=== PATIENT | female | born 1975 | race Caucasian/White ===

== ENCOUNTER 2017-09-10 19:57 | Inpatient (IN) ==
[2017-09-10] MEDS ORDERED: *HR* FentaNYL (PF) 100 MCG/2 ML VIAL IVP ONE ×3 (20:13→21:15)
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
[2017-09-10] MEDS ORDERED: Ondansetron 4 MG/2 ML VIAL IVP ONE (21:15)
[2017-09-10 21:58] LABS: BUN/Creatinine Ratio 24 (6-26); Blood Urea Nitrogen 12 mg/dL (6-20); Calcium 9.1 mg/dL (8.6-10.3); Carbon Dioxide 19 mEq/L (23-29); Chloride 109 mEq/L (98-107); Glucose 92 mg/dL (70-105); Osmolality,Calculated 277 (280-300); Potassium 4.1 mEq/L (3.5-5.1); Sodium 134 mEq/L (136-145); eGFR For Non-African Americans > 60 (> 60)
[2017-09-10 22:00] LABS: INR 1.1; Prothrombin Time 11.5 Seconds (9.4-12.1)
[2017-09-10 22:04] LABS: Hematocrit 41.9 % (35.3-44.9); Hemoglobin 14.4 g/dL (11.5-15.4); Mean Corpuscular HGB Conc 34.4 g/dL (31.6-35.5); Mean Corpuscular Hemoglobin 32.1 pg (28.0-33.3); Mean Corpuscular Volume 93.5 fL (83.0-100.0); Mean Platelet Volume 11.6 fL (9.4-12.4); Platelet Count 206 K/mcL (140-400); Red Blood Count 4.48 M/mcL (3.82-4.97); Red Cell Distribution Width 13.6 % (11.5-14.5)
[2017-09-10] MEDS ORDERED: *HR* OxyCODONE/APAP 10/325 TABLET PO ONE (22:15)
[2017-09-10] MEDS ORDERED: Naloxone 0.4 MG/ML INJ IVP PRN (23:38)
[2017-09-10] MEDS ORDERED: 0.9 % Sodium Chloride 1,000 ML IVC SCH (23:45)
[2017-09-10] MEDS ORDERED: *HR* OxyCODONE/APAP 10/325 TABLET PO PRN (23:49)
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
[2017-09-11] MEDS: Nicotine 14 MG PATCH.TD24 TD SCH ×2 (00:22→08:26)
[2017-09-11] MEDS: *HR* OxyCODONE Immed Rel 5 MG TABLET PO PRN ×3 (00:23→09:47)
[2017-09-11 00:45] LABS: Basophils # 0.1 K/mcL (0.0-0.2); Basophils % 0.5 %; Eosinophils # 0.3 K/mcL (0.0-0.6); Eosinophils % 1.4 %; Hematocrit 39.8 % (35.3-44.9); Hemoglobin 13.7 g/dL (11.5-15.4); Immature Granulocytes % 0.3 % (0-4); Lymphocytes # 9.4 K/mcL (0.6-4.6); Lymphocytes % 46.1 %; Mean Corpuscular HGB Conc 34.4 g/dL (31.6-35.5); Mean Corpuscular Hemoglobin 32.5 pg (28.0-33.3); Mean Corpuscular Volume 94.5 fL (83.0-100.0); Mean Platelet Volume 11.2 fL (9.4-12.4); Monocytes # 1.7 K/mcL (0.0-1.3); Monocytes % 8.4 %; Neutrophils # 8.8 K/mcL (1.6-8.9); Platelet Count 197 K/mcL (140-400); Red Blood Count 4.21 M/mcL (3.82-4.97); Red Cell Distribution Width 13.6 % (11.5-14.5); Segmented Neutrophils % 43.3 %
[2017-09-11 00:55] LABS: INR 1.1; Prothrombin Time 11.3 Seconds (9.4-12.1)
[2017-09-11 00:58] LABS: Activated Partial Thrombo Time 27.3 Seconds (26.0-36.0)
[2017-09-11] MEDS ORDERED: levoFLOXacin 750 MG TABLET PO SCH (01:00)
[2017-09-11 01:07] LABS: Alanine Aminotransferase 160 Units/L (7-52); Albumin 3.6 g/dL (3.5-5.7); Albumin/Globulin Ratio 1.2 (1.1-2.2); Alkaline Phosphatase 70 Units/L (34-104); Aspartate Amino Transferase 97 Units/L (13-39); BUN/Creatinine Ratio 22 (6-26); Bilirubin,Total 0.7 mg/dL (0.3-1.0); Blood Urea Nitrogen 13 mg/dL (6-20); Calcium 8.9 mg/dL (8.6-10.3); Carbon Dioxide 25 mEq/L (23-29); Chloride 109 mEq/L (98-107); Chol/HDL Ratio 3.2 (0-4.9); Cholesterol 152 mg/dL (< 200); Globulin 3.1 g/dL (2.4-3.5); Glucose 110 mg/dL (70-105); HDL Cholesterol 48 mg/dL (40-59); LDL Cholesterol,Calculated 86 mg/dL (0-99); Magnesium 2.1 mg/dL (1.6-2.6); Osmolality,Calculated 287 (280-300); Phosphorous 3.8 mg/dL (2.7-4.5); Potassium 3.9 mEq/L (3.5-5.1); Sodium 138 mEq/L (136-145); Total Protein 6.7 g/dL (6.4-8.9); Triglycerides 90 mg/dL (< 150); eGFR For Non-African Americans > 60 (> 60)
[2017-09-11 01:12] LABS: Platelet Estimate Normal (Normal); Reactive Lymphocytes Present (Not Present)
[2017-09-11] MEDS: *HR* HYDROmorphone 2 MG TABLET PO PRN ×2 (02:17→08:26)
[2017-09-11] MEDS ORDERED: *HR* Heparin 5,000 UNIT/ML VIAL SQ SCH (06:00)
[2017-09-11] MEDS ORDERED: *HR* FentaNYL (PF) 100 MCG/2 ML VIAL IVP PRN ×4 (09:58→17:47)
--- NOTE | 2017-09-11 10:06 | Internal Med Progress Note ---
Date of Encounter: 09/11/17 Time of Encounter: 10:03 - Assessment and plan (1) Closed trimalleolar fracture of left ankle Current Visit: Yes Status: Acute Assessment and plan: Podiatry consulted; appreciate input. Scheduled for surgery today. Pain control an issue per patient. She may have decent opioid tolerance due to IV heroin abuse as recent as 2 months ago. I will discontinue PO dilaudid. Continue PO oxycodone. Add IV fentanyl 25 mcg IV Q4H PRN for breakthrough pain not relieved by oxycodone. I am going to be judicious with opioid use given her history of opioid abuse, but she does have significant fracture and is likely in pain. Will monitor pain control closely post-op. Would appreciate input from podiatry in regards to post-op pain control recommendations. Will resume diet post-op per podiatry's recommendations. Qualifiers: Encounter type: subsequent encounter Fracture healing: with nonunion Qualified Code(s): S82.852K - Displaced trimalleolar fracture of left lower leg , subsequent encounter for closed fracture with nonunion (2) Leucocytosis Current Visit: Yes Status: Acute Assessment and plan: WBC up to 20.4 today. She remains afebrile. She states that she has a history of asplenia with elevated WBC in the past. CXR was WNL. Will obtain UA reflex culture. Will continue IV levaquin for now. Will deescalate based on UA results. Qualifiers: Leukocytosis type: unspecified Qualified Code(s): D72.829 - Elevated white blood cell count, unspecified (3) DVT prophylaxis Current Visit: Yes Status: Acute Assessment and plan: Continue heparin SC. - Time Spent With Patient 25 - 35 minutes - Subjective Interval history: Patient had no acute events overnight. Nursing staff reports that patient was crying this morning requesting changes to her pain medications. I saw patient this first thing this AM. She states that her pain is not well-controlled. She states that oxycodone and dilaudid PO are "not touching me." She states that she stopped using IV heroin about 2 months ago. She thinks she may be too opioid tolerant. She is scheduled for surgery today by podiatry for her left ankle fracture. She has no other complaints. - Constitutional Vitals: Temp Pulse Resp BP Pulse Ox 98.2 F 95 18 132/82 98 09/11/17 07:39 09/11/17 07:39 09/11/17 07:39 09/11/17 07:39 09/11/17 07:39 General appearance: Present: A&O X 3, pleasant, answers questions appropriately Exam: Mild distress due to pain. - Respiratory Respiratory exam: Present: CTAB. Absent: accessory muscle use, rales, rhonchi, wheezes Additional comments: Normal WOB - Cardiovascular Cardiovascular exam: Present: RRR, +S1, +S2. Absent: diastolic murmur, gallop, rubs, systolic murmur Additional comments: No RLE edema. Unable to evaluate LLE due to bandaged per podiatry recommendations. - GI/Abdominal GI/Abdominal exam: Present: normal bowel sounds, soft. Absent: distended, hepatomegaly, mass, splenomegaly, tenderness - Extremities Exam Extremities exam: Present: warm. Absent: calf tenderness, cyanotic, pedal edema Additional comments: LLE bandaged as per podiatry recommendations. - Psychiatric Additional comments: Mild agitation due to pain. Depressed mood and affect. Crying a little during interview due to pain. - Skin Skin exam: Present: dry, intact, warm. Absent: cyanosis, rash Internal Medicine: Result - Labs CBC & Chem 7: 09/11/17 00:36 09/11/17 00:36 Labs: Short CBC 09/11/17 Range/Units 00:36 WBC 20.4 H (4.3-11.1) K/mcL Hgb 13.7 (11.5-15.4) g/dL Hct 39.8 (35.3-44.9) % Plt Count 197 (140-400) K/mcL Neutrophils # 8.8 (1.6-8.9) K/mcL BMP 09/11/17 00:36 Sodium 138 Potassium 3.9 Chloride 109 H Carbon Dioxide 25 BUN 13 Creatinine 0.59 L Glucose 110 H Calcium 8.9 Liver Function 09/11/17 Range/Units 00:36 Total Bilirubin 0.7 (0.3-1.0) mg/dL AST 97 H (13-39) Units/L ALT 160 H (7-52) Units/L Alkaline Phosphatase 70 (34-104) Units/L Albumin 3.6 (3.5-5.7) g/dL - ABG Interpretation ABG results: PT/INR, D-dimer PT 11.3 Seconds (9.4-12.1) 09/11/17 00:36 Consult Discharge Plan - Plan Referrals: NONE,PCP [Primary Care Provider] -
[2017-09-11 12:04] LABS: Bilirubin,Urine Negative (Negative); Blood,Urine Negative (Negative); Clarity,Urine Cloudy (Clear); Color,Urine Yellow (Yellow); Glucose,Urine (UA) Normal (Normal); Ketones,Urine Negative (Negative); Leukocyte Esterase,Urine Negative (Negative); Nitrite,Urine Positive (Negative); PH,Urine 6.5 pH Units (5.0-8.0); Protein,Urine Negative (Neg-Trace); Urobilinogen,Urine Normal (Normal)
[2017-09-11 12:09] LABS: Bacteria,Urine None Seen per hpf (None-Few); Hyaline Casts,Urine None Seen per lpf (None-Few); RBC,Urine 0-3 per hpf (0-3); Squamous Epithelial Cell,Urine Many per lpf (None-Few); WBC,Urine 0-3 per hpf (0-3)
[2017-09-11] MEDS ORDERED: Bupivacaine/Clonidine Syringe 1 EACH SYRINGE ONE ×2 (12:44→13:13)
--- NOTE | 2017-09-11 12:52 | Podiatry Consult Note ---
Date of Encounter: 09/11/17 Time of Encounter: 10:48 Assessment and Plan (1) Ankle fracture Current visit: No Status: Acute The patient was instructed that she is in need of an open reduction, internal fixation of her ankle fracture. The patient was also instructed that there is a probability that is high that she will have severe arthritis after that procedure which may require future surgical intervention consisting of an ankle fusion or an ankle replacement. Patient relates understanding. The patient was also instructed that she may need an external fixation of her skin is not sufficient. The surgical procedure discussed was open reduction, internal fixation of left ankle fracture versus closed reduction external fixation of the left ankle fracture.Patient was informed of the risks and complications of surgery. These may include but are not limited to the following; nerve damage, numbness, tingling, RSD/CRPS, loss of motor function, loss of toe, loss of limb , loss of life, ischemia, wound healing issues, infection, scarring, keloid formation, continued pain, arthritis, non-union, mal-union, prominent hardware, displaced hardware, reaction to hardware, the need to remove hardware, bruising , continued limp, the need for future surgery, over correction, under correction , chronic swelling, the need for physical therapy, stiffness of joints, ulceration, slow healing, wound dehiscence, reaction to implant, reaction to sutures. The patient was informed of the possible conservative treatments available which may include but are not limited to the following: Orthotics, bracing, non -weight bearing, physical therapy, padding, taping, steroid injections, NSAIDS, casting. The patient was given the option to seek a second opinion. It was explained that surgery is an art and not an exact science therefore results cannot be guaranteed. All the patients questions and concerns were addressed. Patient agrees to have the surgery despite the possible risks and complications. Absolutely no guarantees were given or implied. Qualifiers: Encounter type: initial encounter Fracture type: closed Laterality: left Qualified Code(s): S82.892A - Other fracture of left lower leg, initial encounter for closed fracture History of Present Illness Chief complaint: Left ankle fracture HPI: Ms. Butler is a 41 year old female with a history of a left ankle fracture. Patient relates that she fell off a wall and landed wrong. Patient relates that she has had significant pain overnight. Patient relates that Percocet and other pills did nothing for her and that she has significant pain as a result. Patient relates understanding that she needs her fracture fixed. Past Med Surg Social Fam HX - Past Medical History Medical history: other Psychiatric history: anxiety, panic disorder - Past Surgical History Surgical History: DESTINY/BSO - Social History Smoking Status: Current every day smoker Smokeless Tobacco Status: No Alcohol use: none Drug use: cocaine, methamphetamine, IV Drug Use Medications and Allergies No Known Home Drugs 09/10/17 [History] 3 Allergy/AdvReac Type Severity Reaction Status Date / Time Penicillins Allergy Anaphylaxis Verified 12/07/16 03:17 All Systems Reviewed: The remainder of the systems were reviewed and are negative Physical Exam - Constitutional Vitals: Temp Pulse Resp BP Pulse Ox 98.9 F 65 17 114/75 97 09/11/17 12:29 09/11/17 12:29 09/11/17 12:29 09/11/17 12:29 09/11/17 12:29 Exam: The posterior splint is noted to be intact. Capillary fill time intact to digits 1 through 5 bilaterally. Sensation intact to the level of the digits. Dermatologic exam not performed due to the splint being intact. Radiographic exam demonstrates a pilon fracture. Results - Labs Result Diagrams: 09/11/17 00:36 09/11/17 00:36 Labs: Abnormal lab results WBC 20.4 K/mcL (4.3-11.1) H 09/11/17 00:36 Lymphocytes # 9.4 K/mcL (0.6-4.6) H 09/11/17 00:36 Monocytes # 1.7 K/mcL (0.0-1.3) H 09/11/17 00:36 Reactive Lymphocytes Present (Not Present) A 09/11/17 00:36 Chloride 109 mEq/L (98-107) H 09/11/17 00:36 Creatinine 0.59 mg/dL (0.60-1.20) L 09/11/17 00:36 Glucose 110 mg/dL (70-105) H 09/11/17 00:36 AST 97 Units/L (13-39) H 09/11/17 00:36 ALT 160 Units/L (7-52) H 09/11/17 00:36 Urine Clarity Cloudy (Clear) A 09/11/17 11:55 Urine Nitrite Positive (Negative) A 09/11/17 11:55 Ur Squamous Epith Cells Many per lpf (None-Few) H 09/11/17 11:55 H & H 09/11/17 Range/Units 00:36 Hgb 13.7 (11.5-15.4) g/dL Hct 39.8 (35.3-44.9) % All other labs normal. Consult Discharge Plan - Plan Referrals: NONE,PCP [Primary Care Provider] -
--- NOTE | 2017-09-11 12:53 | Anesthesia Evaluation PreOp ---
Date of Encounter: 09/11/17 Time of Encounter: 12:50 - Past History Planned Operation: Orif Left Ankle Cardiac History: Denies any Significant Hx Pulmonary History: Smoker ASSISTANT VICE PRESIDENT History: Denies Any Significant HX Other Medical History: Denies Any Significant HX Anesthesia History: No Prior Anesthetic Complications, Past Anesthesia (DESTINY) : No (DESTINY) Alcohol Use: none Drug use: cocaine, methamphetamine, IV Drug Use Medications and Allergies No Known Home Drugs 09/10/17 [History] 3 Allergy/AdvReac Type Severity Reaction Status Date / Time Penicillins Allergy Anaphylaxis Verified 12/07/16 03:17 - Meds/Allergy Pre-op Review Medications Reviewed: Yes Allergies Reviewed: Yes Beta Blockers on Current Med List: No Anesthesia Results - Labs 09/11/17 00:36 09/11/17 00:36 - Imaging EKG: report reviewed (SR) Anesthesia Exam Vital Signs/O2 Sat, Most Current Temp Pulse Resp BP Pulse Ox 98.9 F 65 17 114/75 97 09/11/17 12:29 09/11/17 12:29 09/11/17 12:29 09/11/17 12:29 09/11/17 12:29 NPO (# of Hours): > 8 Hrs Pain Scale: 0 Pain Scale Used: Numeric (1 - 10) - HEENT Pupil (Motor): Pupils equal, EOMI Mallampati: II Teeth: Normal Oral Opening: Greater than 3 - ASSISTANT VICE PRESIDENT LOC: Oriented ASSISTANT VICE PRESIDENT Motor: Normal RUE, Normal LUE, Normal RLE, Normal LLE, Normal Face ASSISTANT VICE PRESIDENT Sensory: Normal: RUE, LUE, RLE, LLE, Face - Cardiac Rhythm: Regular Murmur: None JVD: No Carotid Bruit: No - Pulmonary Breath Sounds: bilateral Clear Respiratory Effort: Symmetrical Anesthesia Assess/Plan ASA Score: 3 Modified Kerkhoven Scale for Level of Consciousness: Cooperative, oriented, and tranquil Anesthetic Plan: General, Regional Autologous Blood: Yes Monitoring Plan: Standard Monitors Recovery Plan: PACU
[2017-09-11] MEDS ORDERED: Albuterol 2.5 MG/3 ML NEBULIZER IH ONE (12:57)
[2017-09-11] MEDS ORDERED: Ondansetron 4 MG/2 ML VIAL IVP ONE ×2 (12:57→17:47)
[2017-09-11] MEDS ORDERED: *HR* Labetalol 20 MG/4 ML SYRINGE IVP PRN ×2 (12:57→17:47)
[2017-09-11] MEDS ORDERED: *HR* Promethazine 25 MG/ML VIAL IVP PRN ×2 (12:57→17:47)
[2017-09-11] MEDS ORDERED: Ketorolac 15 MG/ML VIAL IVP ONE ×2 (12:57→17:47)
[2017-09-11] MEDS ORDERED: Lidocaine -MPF 2% 2 ML VIAL ONE (13:19)
[2017-09-11] MEDS ORDERED: *HR* Rocuronium Bromide 50 MG/5 ML VIAL ONE (13:19)
[2017-09-11] MEDS ORDERED: *HR* Midazolam HCl 2 MG/2 ML VIAL ONE (13:19)
[2017-09-11] MEDS ORDERED: *HR* Succinylcholine 200 MG/10 ML VIAL IVP ONE (13:19)
[2017-09-11] MEDS ORDERED: Ondansetron 4 MG/2 ML VIAL ONE (13:19)
[2017-09-11] MEDS ORDERED: Dexamethasone 4 MG/ML VIAL ONE (13:19)
[2017-09-11] MEDS ORDERED: *HR* Propofol 200 MG/20 ML VIAL IVP ONE (13:19)
[2017-09-11] MEDS ORDERED: *HR* FentaNYL (PF) 100 MCG/2 ML VIAL ONE ×2 (13:20→13:44)
[2017-09-11] MEDS ORDERED: *HR* Midazolam HCl 5 MG/5 ML VIAL IVP ONE (13:26)
[2017-09-11] MEDS ORDERED: Lidocaine -MPF 1% 5 ML AMPUL ONE (13:28)
[2017-09-11] MEDS ORDERED: Clindamycin 600 MG/50 ML 600 MG/50 ML IV.SOLN IVPB ONE ×2 (14:14→14:32)
--- NOTE | 2017-09-11 14:27 | Anesthesia Procedures ---
Date of Encounter: 09/11/17 Time of Encounter: 14:00 Procedures: Anesthesia - Nerve Block Procedure Date: 09/11/17 Time: 14:00 Allergies/Adv Reactions: none Pre-op Diagnosis: Left Ankle Fracture Surgical Procedure: ORIF Left Ankle Checklist: Correct Patient Identifier, Correct procedure, History checked Correct side: Left Blood Thinner: No Monitor Applied: EKG, BP, Pulse Oximetry Supplemental Oxygen via Nasal Cannula (L/min): 2 Sedation: Versed (mg): 7 Sedation: Fentanyl (mcg): 100 Indication: Post Op Analgesia Pre-op Neuro Deficits: No Block Type: Popliteal Catheter placed: No Sterile Technique: Yes Ultrasound used: No Anatomy identified: Yes Visual spread of Local: No Neuro Stimulation: Yes Nerve Stimulator Range: 0.2 - 0.4 mA Blood on Needle Aspiration: No Smooth Injection of Local: Yes Pain with Injection of Local: No Prep: Chlorhexadine Needle: 21 x 100 mm Stimuplex Local: 0.25% Bupivicaine w/Clonidine 20 mcg/cc Volume (cc): 40cc Number of Attempts: 1 Complications: None/effective block, Significant hemodynamic change Vitals: BP - 95/60 P- 66 Sat - 98%
[2017-09-11] MEDS ORDERED: Ringers Solution, Lactated 1,000 ML IVC SCH ×2 (15:30→17:47)
[2017-09-11] MEDS ORDERED: EPHEDrine 50 MG/ML VIAL ONE (15:44)
--- NOTE | 2017-09-11 17:44 | Operative Note ---
Date of procedure: 09/11/17 Pre-op diagnosis: Left pilon fracture Post-op diagnosis: same Procedure: Open repair of left pilon fracture including the fibula, weightbearing surface of the tibia, medial malleolus. Open repair of left syndesmosis. Implants: Di plates with associated screws. Complications: None Anesthesia: MILAGRO Surgeon: Christofer Brunson Was there an health education assistant present: No Estimated blood loss (cc): 30 Specimen: None Condition: stable Disposition: PACU Procedure in Detail: The patient was administered IV antibiotics. The patient was transported to the operative room and placed on operating table in the position. Following general anesthesia the foot was scrubbed prepped and draped in the usual aseptic fashion. A timeout was performed. The lower extremity was raised to 60 degrees for hemostasis and exsanguinated utilizing an Esmarch bandage. The pneumatic tourniquet was inflated. The leg was lowered to the table. An incision was made over the fibula and deepened through subcutaneous tissue with care taken to identify and retract all vital neurovascular structures. The fibula was reduced utilizing a lobster claw. Once the fibula was reduced and fixated with a neutralization plate the attention was directed to the medial malleolus. Utilizing the incision along the lateral aspect the pilon fracture was identified and there was noted to be multiple fragments within the pilon fracture. The pilon fracture was pinned through the lateral incision. Decision was made to use the medial incision as well to reduce the pilon fracture and medial malleolus. An incision was made over the medial malleolus and deepened through subcutaneous tissue with care taken to identify and retract all vital neurovascular structures. Utilizing the medial and lateral incisions the pilon fractures were then reduced. The fracture sites were pinned initially after which to plate fixation was utilized to stabilize the fracture sites. Attention was then directed to the anterior aspect of the medial malleolus which was also displaced and a plate and screws was utilized to stabilize that site. After sufficient fixation was noted at the medial malleolus and pilon fracture the attention was directed to the syndesmosis. The syndesmosis was tested and noted to be insufficient, an open syndesmotic repair was performed and a screw was then placed to reduce the syndesmosis. The incision sites were then irrigated with copious amounts of normal saline and closed in a layered fashion. A dry sterile dressing was applied. The pneumatic tourniquet was deflated and a hyperemic response was noted to all digits. The patient was placed in a posterior splint. The patient tolerated the procedure and anesthesia well and was transported to the recovery room with vital signs stable and vascular status intact to both feet. The patient will be readmitted per anesthesia. The patient will keep the dressings clean, dry, intact until the follow-up appointment in 1-2 weeks. The patient's weightbearing status will be strict nonweightbearing. The patient would benefit from a physical therapy/occupational therapy consult to determine her ability to remain nonweightbearing. The patient will likely need 3-7 days of opioid pain medication postprocedure, after which the patient will likely use NSAIDs/Tylenol.
--- NOTE | 2017-09-11 17:45 | Anesthesia Evaluation Post Op ---
Date of Encounter: 09/11/17 Time of Encounter: 17:44 - Vital Signs Vital Signs: Vital Signs/O2 Sat, Most Current Temp Pulse Resp BP Pulse Ox 98.5 F 70 16 116/70 96 09/11/17 17:32 09/11/17 17:32 09/11/17 17:32 09/11/17 17:32 09/11/17 17:32 - Lungs Lungs: Clear Ascult./Percussion - Airway Airway: Non-obstructed - Cardiovascular Regular Rate - Mental Status Mental Status: Alert & Oriented, Answers Appropriately - Pain Pain Scale: 0 Pain Scale used: Numeric (1 - 10) - Nausea Vomiting Nausea Vomiting: Not Present - Hydration Hydration: NPO, Has not voided - Discharge PostOp Status: Transfer Patient to floor
[2017-09-11] MEDS ORDERED: Naloxone 0.4 MG/ML INJ IVP PRN (17:47)
[2017-09-11] MEDS: *HR* Heparin 5,000 UNIT/ML VIAL SQ SCH (19:02)
[2017-09-12] MEDS ORDERED: levoFLOXacin 750 MG TABLET PO SCH (01:00)
[2017-09-12] MEDS: *HR* OxyCODONE Immed Rel 5 MG TABLET PO PRN ×3 (02:52→13:38)
[2017-09-12 06:51] LABS: Basophils # 0.1 K/mcL (0.0-0.2); Basophils % 0.4 %; Eosinophils % 0.2 %; Hematocrit 35.8 % (35.3-44.9); Immature Granulocytes % 0.5 % (0-4); Lymphocytes # 6.3 K/mcL (0.6-4.6); Lymphocytes % 32.7 %; Mean Corpuscular HGB Conc 33.5 g/dL (31.6-35.5); Mean Corpuscular Hemoglobin 32.2 pg (28.0-33.3); Mean Platelet Volume 12.1 fL (9.4-12.4); Monocytes # 2.1 K/mcL (0.0-1.3); Monocytes % 10.8 %; Neutrophils # 10.7 K/mcL (1.6-8.9); Platelet Count 173 K/mcL (140-400); Red Blood Count 3.73 M/mcL (3.82-4.97); Red Cell Distribution Width 13.3 % (11.5-14.5); Segmented Neutrophils % 55.4 %
[2017-09-12] MEDS: *HR* Heparin 5,000 UNIT/ML VIAL SQ SCH (06:57)
[2017-09-12 07:10] LABS: BUN/Creatinine Ratio 17 (6-26); Blood Urea Nitrogen 9 mg/dL (6-20); Calcium 8.5 mg/dL (8.6-10.3); Carbon Dioxide 23 mEq/L (23-29); Chloride 107 mEq/L (98-107); Glucose 122 mg/dL (70-105); Osmolality,Calculated 282 (280-300); Potassium 3.5 mEq/L (3.5-5.1); Sodium 136 mEq/L (136-145); eGFR For Non-African Americans > 60 (> 60)
[2017-09-12] MEDS ORDERED: Nicotine 14 MG PATCH.TD24 TD SCH (09:00)
[2017-09-12 15:31] VITALS: BP 113/76
--- NOTE | 2017-09-12 16:01 | Discharge Summary ---
- NOTES TO OUTPATIENT PROVIDER Notes to Outpatient Provider: Check CBC at follow up to monitor leukocytosis. Orders not resulted at time of discharge: Pending orders 09/10/17 23:46 Culture,Blood [BC] Routine Culture,Blood,Additional [BC] Routine 09/13/17 04:00 Basic Metabolic Panel AM 0400 CBC [Complete Blood Count] [HEME] AM 0400 Date of Encounter: 09/12/17 Time of Encounter: 15:55 - Discharge Diagnosis (1) Closed trimalleolar fracture of left ankle Priority: Primary Status: Acute Qualifiers: Encounter type: subsequent encounter Fracture healing: with nonunion Qualified Code(s): S82.852K - Displaced trimalleolar fracture of left lower leg , subsequent encounter for closed fracture with nonunion (2) Leucocytosis Priority: Secondary Status: Acute Qualifiers: Leukocytosis type: unspecified Qualified Code(s): D72.829 - Elevated white blood cell count, unspecified (3) DVT prophylaxis Priority: Secondary Status: Acute Hospital course: Ms. Butler is a 41 year old female admitted for closed trimalleolar fracture of left ankle. She was admitted to orthopedic floor and podiatry was consulted. She was take to surgery the next day for open repair of left pilon fracture including the fibula, weight-bearing surface of the tibia, and medial malleolus ; and open repair of left syndesmosis. She tolerated surgery well. PT was consulted and gave patient crutches and came up with rehab plan. She will be discharged home with 7 days of naproxen 500 mg BID with meals and percocet 10 mg Q8H PRN for severe pain for 5 days. Given her history of heroin and multi- drug abuse, it would be prudent to limit the number of days of opioid pain medication. She had leukocytosis during this hospitalization with no fever, normal UA, and normal CXR. She stated that she has history of asplenia and has had leukocytosis in the past. She will follow up with PCP in 2-3 days after discharge. Patient has met maximum benefit of this hospitalization and will be discharged home in stable condition. Discharge discussed with: patient, nurse - Time Spent with Patient Total time spent providing and/or coordinating discharge services: Greater than 30 minutes - Discharge Medications Prescriptions: Naproxen [Naprosyn] 500 mg PO BIDWM 7 Days #14 tablet Oxycodone HCl/Acetaminophen [Percocet 10-325 mg Tablet] 1 each PO Q8H PRN 5 Days #15 tablet PRN Reason: Severe Pain Home Medications: Naproxen [Naprosyn] 500 mg PO BIDWM 7 Days #14 tablet 09/12/17 [Rx] Oxycodone HCl/Acetaminophen [Percocet 10-325 mg Tablet] 1 each PO Q8H PRN 5 Days #15 tablet 09/12/17 [Rx] Allergies/Adverse Reactions: 3 Allergy/AdvReac Type Severity Reaction Status Date / Time Penicillins Allergy Anaphylaxis Verified 12/07/16 03:17 Date of admission: 09/10/17 23:38 Primary care physician: PCP NONE Consults: 09/11/17 00:07 Consult to Podiatry [CONS] Stat Consulting Provider: [facility] Reason for Consult: tibia and fibula fracture Call Completed: Yes 09/12/17 13:22 PT [Consult to Physical Therapy] [CONS] Routine Comment: Evaluate, develop and implement POC Reason for Consult: s/p L ankle ORIF Discharging clinician: Lexa Banegas Anticipated date of discharge: 09/12/17 - Constitutional Vitals: Temp Pulse Resp BP Pulse Ox 98.7 F 87 18 113/76 99 09/12/17 15:29 09/12/17 15:29 09/12/17 15:29 09/12/17 15:29 09/12/17 15:29 General appearance: Present: A&O X 3, pleasant, answers questions appropriately - Respiratory Respiratory exam: Present: CTAB. Absent: accessory muscle use, rales, rhonchi, wheezes Additional comments: Normal WOB - Cardiovascular Cardiovascular exam: Present: RRR, +S1, +S2. Absent: diastolic murmur, gallop, rubs, systolic murmur Additional comments: No RLE edema. Unable to evaluate LLE due to bandaged per podiatry recommendations. - GI/Abdominal GI/Abdominal exam: Present: normal bowel sounds, soft. Absent: distended, hepatomegaly, mass, splenomegaly, tenderness - Extremities Exam Extremities exam: Present: warm. Absent: calf tenderness, cyanotic Additional comments: LLE bandaged post-op. - Psychiatric Psychiatric exam: Present: anxious, depressed, normal affect, normal mood Additional comments: Poor judgment and insight. - Skin Skin exam: Present: dry, warm. Absent: cyanosis, rash - Patient Status Disposition: Home, Self-Care Condition: Good Overall status at discharge: patient is progressing back to baseline - Discharge Instructions Follow Up With: NONE,PCP [Primary Care Provider] - Additional Instructions: Follow up with PCP in 2-3 days after discharge. Repeat CBC can be checked at that time. Follow up with surgeon as advised. - Diet and Activity Activity: other (Ambulate only with crutches as advised by physical therapy.) Diet: regular diet - VTE Documentation of Mechanical Device: Intermittent pneumatic compression device
--- NOTE | 2017-09-14 09:00 | Electrocardiograph Report ---
[address] [place] [address] Test Date: 2017-09-10 Pat Name: Blanca Butler Department: 104 Room: [facility] Gender: F Key Account Executive: JEREMIAH : 1975 Requested By: Jose Villanueva Order Number: [id number] Reading MD: Loreto Salamanca Measurements Intervals [place] Rate: 72 P: 56 DE: 146 QRS: 69 QRSD: 90 T: 38 QT: 387 QTc: 412 Interpretive Statements SINUS RHYTHM Electronically Signed On 09-14-2017 8:58:49 EST by Loreto Salamanca
== END 2017-09-12 16:52 | disposition home or self-care (01) | DRG 493 ==
LOC: EMEROO 19:57 → 3NENU 19:57
PROVIDERS: ADMIT Internal Medicine; ATTEND Family Medicine